=== PATIENT | male | born 1990 | race Caucasian/White ===

== ENCOUNTER 2017-09-06 12:41 | Emergency (ER) | payer MEDICAID | END 2017-09-06 17:13 | disposition home or self-care (01) | LOC: D.ER 12:41 | DX: L03.012 Cellulitis of left finger (principal); F17.200 Nicotine dependence, unspecified, uncomplicated ==

== ENCOUNTER 2017-10-15 20:28 | Emergency (ER) | payer MEDICAID | END 2017-10-15 21:04 | disposition home or self-care (01) | LOC: D.ER 20:28 | DX: M76.9 Unspecified enthesopathy, lower limb, excluding foot (principal); M79.662 Pain in left lower leg; F17.200 Nicotine dependence, unspecified, uncomplicated ==